=== PATIENT | female | born 2000 | race African-American/Black ===

== ENCOUNTER 2022-03-11 11:34 | Emergency (ER) | payer BC ==
[~2022-03-11] VITALS: Ht 160 cm; Wt 51.7 kg
[2022-03-11 11:42] VITALS: BP 132/52
[2022-03-11] MEDS ORDERED: HYDR28.32 TP (11:47)
--- NOTE | 2022-03-11 12:38 | NUR ---
Patient discharged to home in stable condition. Written and verbal after care instructions given. Patient verbalizes understanding of instruction.
== END 2022-03-11 12:40 | disposition home or self-care (01) ==
LOC: ER 11:40
DX: S80.861A Insect bite (nonvenomous), right lower leg, initial encounter (principal); W57.XXXA Bitten or stung by nonvenomous insect and other nonvenomous arthropods, initial encounter; Y93.89 Activity, other specified; Y92.89 Other specified places as the place of occurrence of the external cause; Y99.8 Other external cause status